=== PATIENT | female | born 2000 | race Caucasian/White ===

== ENCOUNTER 2025-04-30 09:38 | Day surgery (SDC) | payer MEDICAID ==
[~2025-04-30] VITALS: Ht 157.5 cm; Wt 46.6 kg
[~2025-04-30 09:38] MED LIST: NO HOME MEDS; ringers solution, lacted 1,000 ML IV SCH
[2025-04-30 10:30] VITALS: BP 102/63; PULSE 81; RESP 16; TEMP 99.4; O2SAT 100
[2025-04-30] MEDS ORDERED: fentaNYL/PF 50MCG/1 ML 2ML syringe ONE (13:21)
[2025-04-30] MEDS ORDERED: midazolam 1 mg/ML 2ml injection ONE (13:21)
[2025-04-30] MEDS ORDERED: LIDOcaine 2% (20mg/ml) 5ml vial ONE (13:25)
[2025-04-30] MEDS ORDERED: propofol inj 20 ML IV ONE (13:29)
[2025-04-30 13:34] VITALS: BP 97/62; PULSE 88; RESP 16; O2SAT 99
[2025-04-30 13:40] VITALS: BP 95/56; PULSE 76; RESP 22; O2SAT 97
[2025-04-30 13:50] VITALS: BP 98/61; PULSE 73; RESP 18; O2SAT 99
[2025-04-30 14:00] VITALS: BP 106/68; PULSE 71; RESP 12; O2SAT 100
--- NOTE | 2025-05-01 14:32 | PATHOLOGY REPORT ---
[facility] [address] [place] [address] SURGICAL PATHOLOGY REPORT CaseNumber: [id number] Surgeon:Mari Ramey M.D. CLINICAL INFORMATION CLINICAL INFORMATION: GERD. DIAGNOSIS DIAGNOSIS: GASTRIC ANTRUM, BIOPSIES X 2 - NO SIGNIFICANT INFLAMMATION, EDEMA, OR VASCULAR CONGESTION - NO INTESTINAL METAPLASIA BY PAS STAINING - NO DYSPLASIA OR MALIGNANCY - NO H. PYLORI ORGANISMS ARE HIGHLIGHTED BY IMMUNOHISTOCHEMISTRY MICROSCOPIC DESCRIPTION MICROSCOPIC DESCRIPTION: Reviewed is a single H&E-stained slide showing serial sections and levels of two fragments of gastric antral-type mucosa. There is no significant inflammation, edema, or vascular congestion. There is no intestinal metaplasia by PAS staining. There are no dysplastic or neoplastic features. Also, no H. pylori organisms are highlighted by immunohistochemistry. GROSS DESCRIPTION GROSS DESCRIPTION: Received in a container of formalin labeled with the patient's name, number, and "antrum BX" are 2 pieces of metz tissue 0.2 and 0.7 x 0.1 x 0.1 cm. The specimen is entirely submitted as A1. The time at which the specimen was removed was 1328. The time at which the specimen was placed in formalin was 1329. Electronically signed by: Jose Lutz M.D. 05/01/2025 1:55:00 PM
== END 2025-04-30 14:14 | disposition home or self-care (01) ==
LOC: PAS 09:38
PROVIDERS: ATTEND Internal Medicine Gastroenterology
DX: R12 Heartburn (principal); K21.9 Gastro-esophageal reflux disease without esophagitis; K31.89 Other diseases of stomach and duodenum; Z87.442 Personal history of urinary calculi
CPT/HCPCS: 43239; J2003; J2250; J2704; J3010; J7120; Z7512; A4615